=== PATIENT | male | born 1950 | race Caucasian/White ===

== ENCOUNTER → 2017-08-19 15:37 | Outpatient (CLI) | payer MEDICARE, OTHER, SELFPAY ==
--- NOTE | 2017-08-19 08:35 | COLBX_PTH ---
PATIENT: VADIM GILMORE LOC: [facility] U#:[id number] AGE/SX: 74/M ROOM: RE08/19/[address]: Dr. Jaxon Langston MD : 1950 BED: DIS: SPEC #: [id number] RECD: 08/19/17 15:29 STATUS: SORAYA DONA #: [id number] DAXA: 08/19/17 08:[address]: Jaxon Langston DEPT: SURGICAL PATHOLOGY RECD BY: Jeramie Spangler ENTERED: 08/22/17 07:43 SP TYPE: COLON BX OTHR DR: Dr. Jane Campbell MD [facility] Tissues: Right colon Procedures: Surgery Specimen Level IV HEADER OPERATION: Colonoscopy PRE-OP DIAGNOSIS: Screening/polyp TISSUE SUBMITTED: Polyp right colon, rule out adenoma MICROSCOPIC DIAGNOSIS Polyp right colon, biopsy: Fragments of colonic mucosa with focal hyperplastic changes. AURORA:kassi 08/23/17 MICROSCOPIC DESCRIPTION Slides are reviewed. GROSS DESCRIPTION Received in fixative is one container labeled with the patient's name and designated polyp right colon. The specimen consists of multiple irregular fragments of light ruiz soft tissue that in aggregate measure 0.3 x 0.3 x 0.1 cm. The specimen is totally submitted in one cassette. / SJ:kassi 08/22/17 TC:5 CPT: 78067
== END ==
PROVIDERS: Visit Provider Internal Medicine Gastroenterology
DX: Z13.9 Encounter for screening, unspecified (principal); K63.5 Polyp of colon
CPT/HCPCS: 88305

== ENCOUNTER → 2018-08-11 14:34 | Outpatient (CLI) | payer SELFPAY ==
--- NOTE | 2018-08-11 14:43 | CT_ITS ---
STUDY: CARDIAC CALCIUM SCORING - CT CHEST REASON FOR EXAM: Male, 67 years old. Hyperlipidemia. RADIATION DOSAGE (If Supplied By Facility): CTDIvol = ( 12.19 ) mGy, DLP = ( 219.42 ) mGycm TECHNIQUE: Axial non-enhanced images were acquired through the heart for the sole purpose of measuring coronary artery calcium. Individualized dose optimization techniques were used for this CT. COMPARISON: Contrast, December 10, 2016. FINDINGS: This portion of the report is being generated solely for the evaluation of noncoronary artery structures which have been assessed on plain another report. The visualized lungs are without infiltrate or mass. Normal heart and mediastinum. Coronary artery calcifications. Normal visualized mediastinum and penny. Normal visualized pulmonary arteries and thoracic aorta. There are mild degenerative changes of the facet spine. There is a 2 mm nonobstructing calculus in the upper pole of the right kidney. Otherwise normal visualized upper abdomen. CT/CCTA Calcium Scoring IMPRESSION: 1. No evidence of intrathoracic anatomic abnormality. 2. Right renal calculus. Electronically Signed: Fred Donnelly DO at 23:51 EDT Tel [phone], Service support ,
--- NOTE | 2018-08-11 14:43 | CT_ITS ---
STUDY: CARDIAC CALCIUM SCORING - CT CHEST REASON FOR EXAM: Male, 67 years old. Hyperlipidemia. RADIATION DOSAGE (If Supplied By Facility): CTDIvol = ( 12.19 ) mGy, DLP = ( 219.42 ) mGycm TECHNIQUE: Axial non-enhanced images were acquired through the heart for the sole purpose of measuring coronary artery calcium. Individualized dose optimization techniques were used for this CT. COMPARISON: Contrast, December 10, 2016. FINDINGS: This portion of the report is being generated solely for the evaluation of noncoronary artery structures which have been assessed on plain another report. The visualized lungs are without infiltrate or mass. Normal heart and mediastinum. Coronary artery calcifications. Normal visualized mediastinum and penny. Normal visualized pulmonary arteries and thoracic aorta. There are mild degenerative changes of the facet spine. There is a 2 mm nonobstructing calculus in the upper pole of the right kidney. Otherwise normal visualized upper abdomen. CT/Limited Chest CT w/CCTA IMPRESSION: 1. No evidence of intrathoracic anatomic abnormality. 2. Right renal calculus. Electronically Signed: Fred Donnelly DO at 23:51 EDT Tel [phone], Service support ,
[2018-08-11 15:00] VITALS: BP 140/80; PULSE 72; RESP 16; O2SAT 98; BMI 26.2
--- NOTE | 2018-08-11 17:49 | CCTA_ITS ---
Calcium Scoring Date of Study:: 08/11/18 Coronary Calcium Scoring: High-resolution Computed Tomographic imaging of the chest was performed on 08/11/2018 with particular attention paid to the coronary arteries. Images from the examination were analyzed for the presence and extent of coronary artery calcification , using coronary calcium quantification software. The patient tolerated the procedure well and there were no complications. The results of the coronary calcification analysis are provided below. - Findings Left Main (LM): 0 Left Anterior Descending (LAD): 107 Left Circumflex (LCX): 1.19 Right Coronary Artery (RCA): 0 Total Agatston Score: 108.19 - Conclusion Calcium Scoring Interpretation: Calcium Score Interpretation 0 No identifiable atherosclerotic plaque. Very low cardiovascular disease risk. <5% chance of presence coronary artery disease A Negative Examination 1-10 Minimal Plaque burden. Significant coronary artery disease very unlikely. 11-100 Mild plaque burden. Likely mild or minimal coronary atherosclerosis. 101-400 Moderate plaque burden Moderate non-obstructive coronary artery disease highly likely. Over 400 Extensive plaque burden. High likelihood of at least one significant coronary stenosis (>50% diameter) Calcium Score: 101 - 400 Moderate non-obstructive coronary artery disease highly like - 1. Percentile ranking: Between 25% and 50% of people of the same ge nder/similar age had the same/lower scores.2. Continue cardiovascular risk factor evaluation and care as deemed appropriate
== END ==
PROVIDERS: Family Provider Internal Medicine; PCP Internal Medicine; Referring Provider Internal Medicine; Visit Provider Internal Medicine
DX: E78.5 Hyperlipidemia, unspecified (principal)
CPT/HCPCS: 75571; 76380

== ENCOUNTER → 2021-09-16 | Outpatient (CLI) | payer SELFPAY ==
--- NOTE | 2021-09-16 12:56 | CT_ITS ---
STUDY: CARDIAC CALCIUM SCORING - CT CHEST REASON FOR EXAM: Male, 71 years old. Atherosclerotic heart disease. RADIATION DOSAGE (If Supplied By Facility): CTDIvol = ( 12.19 ) mGy, DLP = ( 195.04 ) mGycm TECHNIQUE: Axial non-enhanced images were acquired through the heart for the sole purpose of measuring coronary artery calcium. Individualized dose optimization techniques were used for this CT. COMPARISON: 08/11/2018. FINDINGS: This portion of the report is being generated solely for the evaluation of noncoronary artery structures which have been assessed on plain another report. The visualized lungs are clear. There is no pleural abnormality. Heart is normal in size. There are coronary artery calcifications as well as calcifications at the aortic valve plane. No pericardial fluid. Normal visualized pulmonary arteries and thoracic aorta. Normal mediastinum and penny. There are degenerative changes of the thoracic spine. Multiple small cysts are seen in the liver. The abdomen is otherwise unremarkable. CT/Limited Chest CT Cardiac Only IMPRESSION: 1. Coronary artery calcifications. There is no other evidence of intrathoracic anatomic abnormality. 2. Stable hepatic cysts. Please go to: [email or web address] , for a description of the calculator. Electronically Signed: Fred Donnelly DO at 16:03 EDT ,
[2021-09-16 13:02] VITALS: BP 130/68; PULSE 66; RESP 18; TEMP 36.6; O2SAT 98; BMI 25.8
--- NOTE | 2021-09-16 17:01 | CA.SCORE ---
Calcium Scoring Date of Study:: 09/16/21 Coronary Calcium Scoring: High-resolution Computed Tomographic imaging of the chest was performed on [09/16/2021], with particular attention paid to the coronary arteries. Images from the examination were analyzed for the presence and extent of coronary artery calcification , using coronary calcium quantification software. The patient tolerated the procedure well and there were no complications. The results of the coronary calcification analysis are provided below. Findings Coronary Artery Left Main (LM): 109 Left Anterior Descending (LAD): 76 Left Circumflex (LCX): 0 Right Coronary Artery (RCA): 4 Total Agatston Score: 189 Calcium Scoring Interpretation: 0 No identifiable atherosclerotic plaque. Very low cardiovascular disease risk. <5% chance of presence coronary artery disease A Negative Examination 1-10 Minimal Plaque burden. Significant coronary artery disease very unlikely. 11-100 Mild plaque burden. Likely mild or minimal coronary atherosclerosis. 101-400 Moderate plaque burden Moderate non-obstructive coronary artery disease highly likely. Over 400 Extensive plaque burden. High likelihood of at least one significant coronary stenosis (>50% diameter) Calcium Score: 101 - 400 Moderate non-obstructive coronary artery disease highly like
== END | disposition home or self-care (01) ==
LOC: CT 12:55
PROVIDERS: PCP Internal Medicine; Referring Provider Internal Medicine; Visit Provider Internal Medicine
DX: I25.10 Atherosclerotic heart disease of native coronary artery without angina pectoris (principal)
CPT/HCPCS: 75571; 76380

== ENCOUNTER → 2022-09-01 | Outpatient (CLI) | payer MEDICARE, OTHER, SELFPAY ==
--- NOTE | 2022-09-01 07:00 | MRI_ITS ---
STUDY: MRI LUMBAR SPINE WITHOUT CONTRAST REASON FOR EXAM: Male, 72 years old. pain LEFT buttock into LEFT leg x 6 months TECHNIQUE: Standardized fat and water weighted pulse sequences were obtained in the sagittal and axial planes. Noncontrast images obtained. Contrast: No contrast administered COMPARISON: No previous MRI for comparison, correlation is made to plain film examination of 08/13/2022. FINDINGS: Vertebral bodies and alignment. 1. Vertebral body height and alignment are maintained. No evidence of marrow edema or occult fracture. 2. Paraspinous soft tissue planes have normal appearance. Normal appearance of the muscular fascial planes of the erector spinae. 3. Normal appearance of the sacrum and sacroiliac joints. Intervertebral disks levels. T12-L1: Normal endplates. Normal disc height, hydration and morphology. Normal bilateral facet joints. Normal central canal and bilateral lateral recesses. Normal bilateral intervertebral neural foramina. L1-2: Normal endplates. Normal disc height, hydration and morphology. Normal bilateral facet joints. Normal central canal and bilateral lateral recesses. Normal bilateral intervertebral neural foramina. L2-3: Normal endplates. Normal disc height, hydration and morphology. Normal bilateral facet joints. Normal central canal and bilateral lateral recesses. Normal bilateral intervertebral neural foramina. L3-4: Normal endplates. Normal disc height, hydration and morphology. Normal bilateral facet joints. Normal central canal and bilateral lateral recesses. Normal bilateral intervertebral neural foramina. L4-5: Mild disc desiccation, broad-based posterior disc bulge/borderline protrusion with deformity the anterior epidural space. Significant facet hypertrophic changes and ligamentum flavum hypertrophy greater on the LEFT than RIGHT also contributes to deformity of the thecal sac. There is significant deformity of the lateral recesses greater on the LEFT than RIGHT due to the facet hypertrophic changes with expected nerve root compression with in the LEFT lateral recess likely including the LEFT L5 nerve root. The neural foramina are widely patent. Central canal is maintained at greater than 10 mm however there is significant compression of the lateral aspect of the thecal sac due to facet hypertrophic changes. L5-S1: Normal endplates. Normal disc height, hydration and morphology. Normal bilateral facet joints. Normal central canal and bilateral lateral recesses. Normal bilateral intervertebral neural foramina. Spinal cord: Normal appearance of the spinal cord and conus. Conus is located at L1. Cauda equina has normal appearance. No evidence of cord compression or edema. No intramedullary signal abnormality noted. MRI/Spine Lumbar (Routine) IMPRESSION: 1. Broad-based concentric disc bulge/borderline protrusion at the L4-5 level. There is deformity of the anterior epidural space however significant facet and ligamentum flavum hypertrophic changes greater on LEFT than RIGHT contributed to significant deformity of the lateral aspect of the thecal sac particularly the lateral recesses. There is compromise of the LEFT lateral recess and expected nerve root impingement within the lateral recess likely including the LEFT L4 nerve root. 2. Remaining disc spaces have normal appearance. 3. Normal appearance the spinal cord and conus. Electronically Signed: Jeramie Ayoub MD at 18:29 EDT ,
== END | disposition home or self-care (01) ==
LOC: MRI 07:40
PROVIDERS: PCP Internal Medicine; Referring Provider Orthopaedic Surgery; Visit Provider Orthopaedic Surgery
DX: M54.50 Low back pain, unspecified (principal); M79.605 Pain in left leg
CPT/HCPCS: 72148

== ENCOUNTER → 2023-07-22 | Outpatient (CLI) | payer MEDICARE, OTHER, SELFPAY ==
--- NOTE | 2023-07-25 14:05 | STRESSREP ---
Stress Test Report Date: 07/22/2023 Procedure: Exercise tolerance test/imaging study Indications: CAD Consent: Per the patient Procedure: The patient exercised on a Cricket protocol for 11 minutes and 59 seconds achieving a peak heart rate of 142 bpm (95% predicted maximal heart rate) with a peak blood pressure 160/72 mmHg and a peak MET capacity of 13.4 METs. The baseline ECG demonstrated normal sinus rhythm. The peak exercise ECG demonstrated no significant ischemic changes. EKG during recovery revealed no significant ischemic changes [There were no cardiac dysrhythmias pretest, during exercise, or recovery]. The functional capacity was considered excellent for age. There was [no complaint of chest discomfort during exercise or recovery]. The examination was discontinued secondary to achieving target heart rate. Impression: 1. Technically adequate (percent predicted maximal heart rate greater than 85%) exercise tolerance test 2. Stress test is negative for exercise-induced EKG changes of ischemia 3. The test test is negative for exercise-induced chest pain 4. Functional capacity is excellent for age 5. Nuclear images pending Myocardial perfusion imaging study: Technique: The patient was injected with 12 mCi of technetium 99m Cardiolite and subsequently rest SPECT Cardiolite nuclear imaging was obtained in the horizontal long, vertical long, and short axis views. The patient exercised on a Cricket protocol. Please see above for details. The patient was injected with 36 mCi of technetium 99m Cardiolite and subsequently stress SPECT Cardiolite nuclear imaging was obtained in the horizontal long, vertical long, and short axis views. A gated Cardiolite study at peak stress was obtained. Interpretation: Rest and stress SPECT Cardiolite nuclear imaging status post realignment, normalization, and attenuation correction, demonstrates no evidence of significant ischemia or infarction. The gated Cardiolite study demonstrates no significant regional wall motion abnormalities. The reported LVEF is 69%. Impression: 1. There is no evidence of significant ischemia or infarction. 2. The gated Cardiolite study reports an LVEF of 69%. This note was generated with Upplicationation software. It may contain incorrect words, spelling, and punctuation that were not noted in checking the note before signing.
== END | disposition home or self-care (01) ==
LOC: CVS 05:50
PROVIDERS: PCP Internal Medicine; Referring Provider Internal Medicine; Visit Provider Internal Medicine
DX: I25.10 Atherosclerotic heart disease of native coronary artery without angina pectoris (principal)
CPT/HCPCS: 78452; 93017; A9500